=== PATIENT | male | born 1945 ===

== ENCOUNTER 2022-07-28 00:18 | Inpatient (IN) | payer MEDICARE, OTHER ==
[~2022-07-28] VITALS: Ht 170.2 cm; Wt 88.9 kg
[~2022-07-28 00:18] MED LIST: COQ-10100 MG PO; COREG25 MG PO; ELIQUIS5 M3 PO; EUTHYROX75 MC1 PO; FERSU300 PO; ISOMON20 PO; NITROGLYCERIN0.4 M3 SL; OLMESARTAN MEDOX5 MG PO; ROSUVASTATIN CA20 MG PO; TASIGNA150 MG PO
[2022-07-28 00:47] LABS: BASOPHILS ABSOLUTE AUTO 0.06 K/mm3 (0.00-0.23); BASOPHILS PERCENT AUTO 1 % (0-2); EOSINOPHILS ABSOLUTE AUTO 0.27 K/mm3 (0.00-0.68); EOSINOPHILS PERCENT AUTO 3 % (0-6); Hematocrit 29.3 % (37.0-53.0); Hemoglobin 9.6 g/dL (13.5-17.5); IMMATURE GRAN ABSOLUTE AUTO 0.04 K/mm3 (0.00-0.10); IMMATURE GRAN PERCENT AUTO 0 % (0-1); LYMPHOCYTES ABSOLUTE AUTO 1.82 K/mm3 (0.84-5.20); LYMPHOCYTES PERCENT AUTO 18 % (21-46); MONOCYTES ABSOLUTE AUTO 0.96 K/mm3 (0.16-1.47); MONOCYTES PERCENT AUTO 9 % (4-13); Mean Corpuscular HGB 33.7 pg (26.0-34.0); Mean Corpuscular HGB Conc 32.8 g/dL (31.5-36.5); Mean Corpuscular Volume 103 fL (80-100); Mean Platelet Volume 9.3 fL (9.1-12.4); NEUTROPHILS ABSOLUTE AUTO 7.21 K/mm3 (1.96-9.15); NEUTROPHILS PERCENT AUTO 70 % (41-73); Platelet Count 148 K/mm3 (150-400); RDW Coefficient Variation 14.3 % (11.7-14.2); RDW Standard Deviation 53.3 fL (35.1-46.3); Red Blood Cell Count 2.85 M/mm3 (4.30-5.90); White Blood Cell Count 10.36 K/mm3 (4.00-11.30)
[2022-07-28 01:00] LABS: Albumin, Blood 3.6 g/dL (3.4-5.0); Bilirubin, Total 1.7 mg/dL (0.1-1.0); Bun/Creatinine Ratio 15.3 (12.0-20.0); Calcium, Blood 9.2 mg/dL (8.5-10.1); Creatinine, Blood 2.16 mg/dL (0.60-1.20); Globulin, Blood 3.6 g/dL (2.2-4.0); Potassium, Blood 4.1 mmol/L (3.5-5.5); Total Protein, Blood 7.2 g/dL (6.4-8.2)
[2022-07-28 04:28] LABS: BASOPHILS ABSOLUTE AUTO 0.05 K/mm3 (0.00-0.23); BASOPHILS PERCENT AUTO 1 % (0-2); EOSINOPHILS ABSOLUTE AUTO 0.21 K/mm3 (0.00-0.68); EOSINOPHILS PERCENT AUTO 2 % (0-6); Hematocrit 27.7 % (37.0-53.0); IMMATURE GRAN ABSOLUTE AUTO 0.02 K/mm3 (0.00-0.10); IMMATURE GRAN PERCENT AUTO 0 % (0-1); LYMPHOCYTES ABSOLUTE AUTO 1.19 K/mm3 (0.84-5.20); LYMPHOCYTES PERCENT AUTO 11 % (21-46); MONOCYTES ABSOLUTE AUTO 0.73 K/mm3 (0.16-1.47); MONOCYTES PERCENT AUTO 7 % (4-13); Mean Corpuscular HGB 33.6 pg (26.0-34.0); Mean Corpuscular HGB Conc 32.5 g/dL (31.5-36.5); Mean Corpuscular Volume 103 fL (80-100); Mean Platelet Volume 9.4 fL (9.1-12.4); NEUTROPHILS ABSOLUTE AUTO 8.73 K/mm3 (1.96-9.15); NEUTROPHILS PERCENT AUTO 80 % (41-73); Platelet Count 123 K/mm3 (150-400); RDW Coefficient Variation 14.3 % (11.7-14.2); RDW Standard Deviation 53.6 fL (35.1-46.3); Red Blood Cell Count 2.68 M/mm3 (4.30-5.90); White Blood Cell Count 10.93 K/mm3 (4.00-11.30)
[2022-07-28 06:28] LABS: Hematocrit 27.1 % (37.0-53.0); Hemoglobin 8.7 g/dL (13.5-17.5)
[2022-07-28 08:17] VITALS: BP 73/60
[2022-07-28 08:20] VITALS: BP 64/38
[2022-07-28 08:25] VITALS: BP 124/82
[2022-07-28 08:26] VITALS: BP 141/77
[2022-07-28 08:30] VITALS: BP 131/78
--- NOTE | 2022-07-28 09:11 | NUR ---
Pt this morning, given CPR for approximately 10 minutes. Jade present, and stopped the code when she felt sure it was not successful. She is currently sitting at bedside, making phone calls to loved ones. She states she and the pt just recently moved to [place] from [place], and most of their family are in other states. She states she does have an adult daughter living with her currently. She asked, "What happens next?" so I gave her our list of local Mortu[employer], and explained the process. Bedside RN is speaking with Jade now, offering a fingerprint medallion. This RN has remained close, offering support. Palliative care will remain available.
--- NOTE | 2022-07-28 09:18 | NUR ---
ASSUMED CARE PT ARRIVED FROM [facility]INTENANCE [facility]OUN[facility]EE[facility] TO ICU 8 AT APPROXIMATELY 0818. PT INTUBATED, NOT ON SEDATION AND NON-RESPONSIVE. VENT SETTINGS AC/VC 16, 500, PEEP 8, FIO2 80% WITH SPO2 100%. ETCO2 23. PT NOTED TO BE DUAL PACED ON MONITOR. SHEATH WAS STILL IN PLACE TO RIGHT GROIN S/P STENT TO RCA; THEREFORE, CONNECTED ART LINE. LEVOPHED INFUSING AT 5MCG/MIN, AND VASOPRESSIN WAS ALSO INFUSING AT 0.04 UNITS/MIN. BP'S SOFT UPON ARRIVAL, BUT AFTER CONNECTING ART LINE SBP READ 140'S. AT THAT TIME LEVOPHED WAS TURNED DOWN TO 3MCG/MIN. PRIMER PRESS OPERATOR AT BEDSIDE PREPPING FOR STUDY WHEN BP'S STARTED TO DROP AND PT WAS HAVING FREQUENT PVC'S; LEVOPHED TITRATED BACK UP AT THIS TIME AND CHARGE NURSE WENT TO GRAB . PT WENT INTO WHAT APPEARED TO BE VTACH, BUT LOOKING BACK ON RHTHYM STRIP IT APPEARS TO BE VFIB. CPR WAS STARTED RIGHT AWAY AND CODE BLUE CALLED AT 0835; SEE CODE BLUE SHEET FOR FURTHER DETAILS. TIME OF CALLED AT 0850. AT BEDSIDE DURING CODE AND REQUESTED THAT WE CEASE CPR. PALLIATIVE CARE AVAILABLE AND OFFERING SUPPORT TO . DR. DONAHUE AND DR. MUELLER AT BEDSIDE DURING CODE BLUE.
== END 2022-07-28 08:50 | DRG 246 ==
LOC: ER 00:18 → ICUW 05:46 → ICUE 08:49
PROVIDERS: Emergency Medicine; ADMIT Internal Medicine
PROC: 4A023N7 Measurement of Cardiac Sampling and Pressure, Left Heart, Percutaneous Approach (ICD-10-PCS; principal; 2022-07-28)
PROC: 027034Z Dilation of Coronary Artery, One Artery with Drug-eluting Intraluminal Device, Percutaneous Approach (ICD-10-PCS; 2022-07-28)
PROC: 0BH18EZ Insertion of Endotracheal Airway into Trachea, Via Natural or Artificial Opening Endoscopic (ICD-10-PCS; 2022-07-28)
PROC: 5A1935Z Respiratory Ventilation, Less than 24 Consecutive Hours (ICD-10-PCS; 2022-07-28)
PROC: 3E033XZ Introduction of Vasopressor into Peripheral Vein, Percutaneous Approach (ICD-10-PCS; 2022-07-28)
PROC: B2111ZZ Fluoroscopy of Multiple Coronary Arteries using Low Osmolar Contrast (ICD-10-PCS; 2022-07-28)
PROC: B240ZZ3 Ultrasonography of Single Coronary Artery, Intravascular (ICD-10-PCS; 2022-07-28)
PROC: 5A12012 Performance of Cardiac Output, Single, Manual (ICD-10-PCS; 2022-07-28)
PROC: 0T9B70Z Drainage of Bladder with Drainage Device, Via Natural or Artificial Opening (ICD-10-PCS; 2022-07-28)
DX: I21.19 ST elevation (STEMI) myocardial infarction involving other coronary artery of inferior wall (principal); J96.01 Acute respiratory failure with hypoxia; I13.0 Hypertensive heart and chronic kidney disease with heart failure and stage 1 through stage 4 chronic kidney disease, or unspecified chronic kidney disease; N17.9 Acute kidney failure, unspecified; I47.20 Ventricular tachycardia, unspecified; I50.1 Left ventricular failure, unspecified; I46.2 Cardiac arrest due to underlying cardiac condition; I25.10 Atherosclerotic heart disease of native coronary artery without angina pectoris; D63.1 Anemia in chronic kidney disease; I73.9 Peripheral vascular disease, unspecified; N18.32 Chronic kidney disease, stage 3b; E03.9 Hypothyroidism, unspecified; Z79.01 Long term (current) use of anticoagulants; Z95.0 Presence of cardiac pacemaker; Z79.890 Hormone replacement therapy; Z79.899 Other long term (current) drug therapy
CPT/HCPCS: 31500; 51702; 71045; 71046; 74177; 76937; 80053; 82272; 83605; 83690; 83880; 84484; 85014; 85018; 85025; 85347; 92950; 93005; 93010; 93308; 93321; 93454; 94002; 96361; 96374; 96375; 99291-25; 99292; A9270; C1725; C1769; C1874; C1887; C1894; C9113; C9606; J0282; J0696; J1170; J1265; J1644; J2250; J2310; J2405; J3010; J7030; J7040; J7050; J7060; Q9967